=== PATIENT | male | born 1970 | race Caucasian/White ===

== ENCOUNTER 2024-05-27 10:57 | Emergency (ER) | payer BC, SELFPAY ==
[2024-05-27 10:59] VITALS: BP 153/99
--- NOTE | 2024-05-27 12:06 | ED.GENMED ---
History of Present Illness
General
Chief Complaint: Crisis Evaluation
Time Seen by Provider: 05/27/24 11:41
History of Present Illness
History of Present Illness:
53-year-old male presents to the emergency department for evaluation of increased depression and anxiety. He states that he has a long history of depression anxiety managed with Cymbalta and risperidone, over the past several weeks he has felt
increased anxiety. His medications are prescribed by his primary care physician and he does not see a psychiatrist or a therapist. He was sent to the ED by his employer as he indicated concern for mental health. He denies SI or HI. No auditory
or visual hallucinations. Denies illicit substance use.
Past History
Past History
ED Past Medical History: None
ED Past Surgical History: None
Social History
Tobacco: Non-smoker
Alcohol: None
Personal:
Living: with family
Family History
Family History: Negative Diabetes or Hypertension
Review of Systems
Review of Systems
Allergies reviewed?: Yes
All Other Systems: ROS reviewed and negative except as documented in HPI and ROS
Phy Exam
Physical Exam
Physical Exam:
GEN: Well appearing, NAD, WDWN
HEENT: Oral mucosa moist, no scleral icterus
Cardiac: Regular rate
Lung: No respiratory distress, no tachypnea
MSK: No gross deformity or injuries
Skin: Good color, no pallor or jaundice, no rashes
Neuro: AO x3, moves all extremities freely
Psych: Calm, cooperative
Course
Orders/Labs/Results
Orders:
Orders
05/27/24 11:05
Crisis Consult Urgent
Reason for Consult: depression
Vital Signs
Initial and Last Documented VS:
Initial Vital Signs
Temp Pulse Resp BP Pulse Ox
97.8 F 76 18 153/99 97
05/27/24 10:59 05/27/24 10:59 05/27/24 10:59 05/27/24 10:59 05/27/24 10:59
Last Documented Vital Signs
Temp Pulse Resp BP Pulse Ox
97.8 F 76 18 153/99 97
05/27/24 10:59 05/27/24 10:59 05/27/24 10:59 05/27/24 10:59 05/27/24 10:59
MDM/Problems Addressed
MDM/Problems Addressed:
Crisis evaluated the patient, he is appropriate for outpatient management, provided with resources by crisis department
*Critical Care Note
Total Time (30-74mins, 75-104mins- exclusive of procedures): Not Applicable
Update Note
Update Note:
Medically cleared
ED Attending Note
-
Portions of this chart may have been created with voice recognition software.� Occasional wrong word or��sound alike� substitutions may have occurred due to the inherent limitations of voice recognition software.
Discharge Plan
Departure
Patient Disposition: Home (Routine Discharge)
Date of Disposition: 05/27/24
Time of Disposition: 12:06
Patient with high blood pressure during this ER visit?: No
Discharge Problem:
Depression, Anxiety
Instructions: Depression, Adult (DC)
Prescriptions:
No Action
atorvastatin 20 mg Tablet
20 mg PO DAILY
amlodipine [Norvasc] 2.5 mg Tablet
2.5 mg PO DAILY
metformin 1,000 mg Tablet
1,000 mg PO BID
docusate sodium 100 mg Capsule
100 mg PO DAILY
gabapentin 300 mg Capsule
300 mg PO TID
risperidone 0.5 mg Tablet
0.5 mg PO BID
duloxetine 30 mg Capsule, Delayed Rel Sprinkle
30 mg PO DAILY
Ozempic 2 mg/dose (8 mg/3 mL) Pen Injector
2 mg SC QWEEK
Activity Restrictions/Additional Instructions:
Follow up with your primary doctor for further medication adjustments
Interventions
Interventions:
*Risk Screen - Suicide Last Done: 05/27/24 10:59
*General Assessment Last Done: 05/27/24 10:59
*Neglect/Abuse Screening Last Done: 05/27/24 10:59
*ED- Fall Risk Assessment Last Done: 05/27/24 12:00
*ED COVID-19 Vaccine History Last Done: 05/27/24 11:55
*Nursing Disposition Last Done: 05/27/24 12:00
ED-Psychological Assessment Last Done: 05/27/24 11:55
Discharge Date and Time
Discharge Date/Time: 05/27/24 12:56
Print Language: SERBIAN
== END 2024-05-27 12:56 | disposition home or self-care (01) ==
LOC: EMR 10:57
PROVIDERS: EMERGENCY PHYSICIAN Emergency Medicine; FAMILY PHYSICIAN Family Medicine
DX: F32.A Depression, unspecified (principal); F41.9 Anxiety disorder, unspecified; Z79.899 Other long term (current) drug therapy
CPT/HCPCS: 99283

== ENCOUNTER 2024-12-22 15:10 | Emergency (ER) | payer BC, SELFPAY ==
[2024-12-22 15:13] VITALS: BP 158/95
--- NOTE | 2024-12-22 17:44 | ED.SKININJ ---
HPI-Injury
General
Chief Complaint: Skin Surface Trauma
Source: patient
Time Seen by Provider: 12/22/24 17:08
History of Present Illness-Injury
Initial Injury comments:
54 year old male with laceration to left index finger he sustained today using a metal grinding wheel which broke and cut the finger. Unknown last tetanus. No numbness or tingling or loss of function.
Past History
Past History
ED Past Medical History: None
ED Past Surgical History: None
Social History
Tobacco: Non-smoker
Alcohol: None
Personal:
Living: with family
Family History
Family History: Negative Diabetes or Hypertension
Phy Exam
Physical Exam
Physical Exam:
General: Well appearing male NAD
HEENT: NC/AT
Skin: 1.5cm laceration dorsal aspect left index finger at the level of the PIP joint in longitudinal direction. No vascular or tendon involvement. Goo sensation and function to the finger otherwise.
Course
Vital Signs
Initial and Last Documented VS:
Initial Vital Signs
Temp Pulse Resp BP Pulse Ox
97.7 F 65 18 158/95 97
12/22/24 15:13 12/22/24 15:13 12/22/24 15:13 12/22/24 15:13 12/22/24 15:13
Last Documented Vital Signs
Temp Pulse Resp BP Pulse Ox
97.7 F 65 18 158/95 97
12/22/24 15:13 12/22/24 15:13 12/22/24 15:13 12/22/24 15:13 12/22/24 15:13
MDM/Problems Addressed
Differential Diagnosis Includes:
Laceration left index finger. The finger was copiously irrigated and anesthetized with 1% lidocaine in a local fashion. All visible foreign bodies were removed. Wound was then closed with 5-0 Prolene sutures in a simple interrupted fashion.
Total of six sutures were required. Dressing was applied. Tetanus vaccine updated. Stable for discharge with instructions sutures removed in 2 weeks
*Pulse Oximetry
SaO2: 97
Oxygen Mode of Delivery: Room air
Patient hypoxic: no
*Critical Care Note
Total Time (30-74mins, 75-104mins- exclusive of procedures): Not Applicable
ED Attending Note
-
Portions of this chart may have been created with voice recognition software.� Occasional wrong word or��sound alike� substitutions may have occurred due to the inherent limitations of voice recognition software.
Discharge Plan
Departure
Patient Disposition: Home (Routine Discharge)
Date of Disposition: 12/22/24
Time of Disposition: 17:48
Patient with high blood pressure during this ER visit?: No
Discharge Problem:
Laceration
Instructions: Laceration Repair With Stitches (DC)
Prescriptions:
No Action
atorvastatin 20 mg Tablet
20 mg PO DAILY
amlodipine [Norvasc] 2.5 mg Tablet
2.5 mg PO DAILY
metformin 1,000 mg Tablet
1,000 mg PO BID
docusate sodium 100 mg Capsule
100 mg PO DAILY
gabapentin 300 mg Capsule
300 mg PO TID
risperidone 0.5 mg Tablet
0.5 mg PO BID
duloxetine 30 mg Capsule, Delayed Rel Sprinkle
30 mg PO DAILY
Ozempic 2 mg/dose (8 mg/3 mL) Pen Injector
2 mg SC QWEEK
Referrals:
Judy Quintanilla DO [Family Provider, Family Practice]
Activity Restrictions/Additional Instructions:
Keep clean. Have sutures removed in 2 weeks. Return if needed otherwise
Interventions
Interventions:
*Risk Screen - Suicide Last Done: 12/22/24 15:13
*General Assessment Last Done: 12/22/24 15:13
*ED COVID-19 Vaccine History Last Done: 12/22/24 15:13
*ED Influenza Vaccine History Last Done: 12/22/24 15:13
ED-Skin Assessment Last Done: 12/22/24 17:36
Discharge Date and Time
Print Language: ALBANIAN
[2024-12-22] MEDS: ADACEL 0.5 ML IM (17:52)
== END 2024-12-22 17:58 | disposition home or self-care (01) ==
LOC: EMR 15:10
PROVIDERS: EMERGENCY PHYSICIAN Emergency Medicine; FAMILY PHYSICIAN Family Medicine
DX: S61.211A Laceration without foreign body of left index finger without damage to nail, initial encounter (principal); W26.8XXA Contact with other sharp object(s), not elsewhere classified, initial encounter; Z23 Encounter for immunization
CPT/HCPCS: 99282; 12001; 90471; 90715